=== PATIENT | male | born 1970 | race Caucasian/White ===

== ENCOUNTER 2020-10-09 14:35 | Emergency (ER) | payer OTHER ==
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
== END 2020-10-09 16:28 | disposition home or self-care (01) ==
LOC: DL.ED 14:35
DX: S46.912A Strain of unspecified muscle, fascia and tendon at shoulder and upper arm level, left arm, initial encounter (principal); S20.212A Contusion of left front wall of thorax, initial encounter; W20.8XXA Other cause of strike by thrown, projected or falling object, initial encounter
CPT/HCPCS: 71100-LT; 73030-LT; 73610-LT; 99283; 99283-25